=== PATIENT | male | born 1990 | race Caucasian/White ===

== ENCOUNTER 2019-04-26 03:17 | Emergency (ER) | payer SELFPAY ==
[2019-04-26 03:37] VITALS: BP 115/64; PULSE 65; TEMP 98.4; BMI 22.7
--- NOTE | 2019-04-26 03:42 | PDOC ---
History of Present Illness - General Chief Complaint: Pain Stated Complaint: SPLINTER LEFT FOOT Time Seen by Provider: 04/26/19 03:42 - History of Present Illness Initial Comments: 29 year old male with no PMH presneitn giwht Left foot pain for the past 1 hour after stepping on a broken piece of wood niraj. He believes that he has a splinter still stuck in his left foot because he feels a sensation when he walks. He puled out a large piece of it but does not beleive that the entire piece was removed. Denies any drainage from the area, fever,s chills, nausea, vomiting, diarrhea, or other symptoms. His tetanus is not up to date. 04/26/19 03:42 Past History - Past Medical History Allergies/Adverse Reactions: Allergies Allergy/AdvReac Type Severity Reaction Status Date / Time No Known Allergies Allergy Verified 04/26/19 03:36 Home Medications: Ambulatory Orders levoFLOXacin [Levaquin] 750 mg PO DAILY #7 tab 04/26/19 COPD: No - Surgical History Abdominal Surgery: Yes (HERNIA) - Psycho Social/Smoking Cessation Hx Smoking History: Never smoked Hx Alcohol Use: Yes Drug/Substance Use Hx: Yes (MARIJUANA) Substance Use Type: None Review of Systems - Review of Systems Constitutional: No: Chills, Diaphoresis, Fever, Loss of Appetite HEENTM: No: Eye Pain, Blurred Vision, Tearing Respiratory: No: Cough, Orthopnea, Shortness of Breath Cardiac (ROS): No: Chest Pain, Edema, Irregular Heart Rate ABD/GI: No: Diarrhea, Nausea, Vomiting : No: Burning, Dysuria, Discharge Musculoskeletal: No: Back Pain, Gout, Joint Pain Integumentary: No: Bruising, Lesions, Lumps Neurological: No: Headache, Numbness, Paresthesia, Tingling Hematologic/Lymphatic: No: Anemia, Blood Clots, Easy Bleeding *Physical Exam - Vital Signs Last Vital Signs Temp Pulse Resp BP Pulse Ox 98.4 F 65 18 115/64 97 04/26/19 03:33 04/26/19 03:33 04/26/19 03:33 04/26/19 03:33 04/26/19 03:33 - Physical Exam General Appearance: Yes: Nourished, Appropriately Dressed. No: Apparent Distress HEENT: positive: EOMI, BRYSON, Normal ENT Inspection, Normal Voice Neck: positive: Trachea midline, Normal Thyroid, Supple. negative: Tender, Rigid Respiratory/Chest: positive: Lungs Clear, Normal Breath Sounds. negative: Chest Tender, Respiratory Distress, Accessory Muscle Use Cardiovascular: positive: Regular Rhythm, Regular Rate Gastrointestinal/Abdominal: positive: Normal Bowel Sounds, Flat, Soft. negative : Tender Lymphatic: negative: Adenopathy, Tenderness Musculoskeletal: positive: Normal Inspection. negative: Decreased Range of Motion Extremity: positive: Normal Capillary Refill, Normal Range of Motion. negative : Normal Inspection (mascerated area of the left distal medial aspect of his left foot without obvious foreign body.), Tender Integumentary: positive: Normal Color, Dry, Warm Neurologic: positive: Fully Oriented, Alert, Normal Mood/Affect, Normal Response , Motor Strength 5/5 Medical Decision Making - Medical Decision Making 29 year old male with no PMH presenting with suspected retained splinter in his left foot after a piece of wood niraj came loose. XR negative, patient given tdap. However, we cannot rule out with 100% sensitivity a retained foreign body so will send home with Levaquin 750 daily for ppx of retained foreign body ( pseudomonal coverage). Will DC with return precautions and follow up instructions. 04/26/19 04:48 Discharge - Discharge Information Problems reviewed: Yes Clinical Impression/Diagnosis: Splinter of foot without infection Qualifiers: Encounter type: initial encounter Laterality: left Qualified Code(s): S90.852A - Superficial foreign body, left foot, initial encounter Condition: Stable Disposition: HOME - Admission No - Additional Discharge Information Prescriptions: levoFLOXacin [Levaquin] 750 mg PO DAILY #7 tab - Follow up/Referral Referrals: [facility] [Provider Group] - Patient Discharge Instructions Patient Printed Discharge Instructions: DI for Splinter Removal Additional Instructions: Please wear protective foot wear with clean socks. Please take the antibiotics as directed for 7 days. Please watch the area for worsening pain, redness, or fluid drainage. Please return to the ED if you notice any of the symptoms, fevers, chills, or other concerning symptoms. Please follow up with your PCP at your regular appointment or use our clinic on this sheet. - Post Discharge Activity
[2019-04-26] MEDS ORDERED: DIPHTH,PERTUSS(ACELL),TET 0.5 ML DISP.SYRIN IM ONE ×2 (04:08→04:43)
--- NOTE | 2019-04-26 05:02 | PDOC ---
Attending Attestation - Resident Resident Name: Lata Zavala - ED Attending Attestation I have performed the following: I have examined & evaluated the patient, The case was reviewed & discussed with the resident, I agree w/resident's findings & plan, Exceptions are as noted - HPI HPI: 04/26/19 04:58 29 M with no PMH presents to ED with splinter to L foot. Pt states he stepped on a piece of wood that was protruding from the floor. He pulled out the piece of wood but is worried there may be a fragment left inside his foot. He states that he feels some pain with walking. Pt attempted to dig out the retained fragment with a needle but could not find anything. Pt denies any bleeding, swelling, or redness to the area. - Physicial Exam PE: 04/26/19 04:59 "GENERAL: Awake, alert, and fully oriented, in no acute distress. HEAD: No signs of trauma EYES: PERRLA, EOMI, sclera anicteric, conjunctiva clear ENT: Auricles normal inspection, hearing grossly normal, nares patent, oropharynx clear without exudates. Moist mucosa NECK: Nontender, no stepoffs, Normal ROM, supple, no lymphadenopathy, JVD, or masses LUNGS: Breath sounds equal, clear to auscultation bilaterally. No wheezes, and no crackles HEART: Regular rate and rhythm, normal S1 and S2, no murmurs, rubs or gallops ABDOMEN: Soft, nontender, normoactive bowel sounds. No guarding, no rebound. No masses EXTREMITIES: Normal range of motion, no edema. No clubbing or cyanosis. No cords, erythema, or tenderness NEUROLOGICAL: Cranial nerves II through XII intact. 5/5 strength and sensation in all extremities, Normal speech, normal gait, normal cerebellar function SKIN: + L foot plantar surface with puncture wound, no visible splinter or foreign body - Medical Decision Making 04/26/19 05:00 29 M with puncture wound to L plantar foot. - XR shows no obvious foreign body - Tdap - Levaquin for pseudomonas ppx Pt is well appearing, with normal vitals. Clinically stable for DC at this time. I discussed the physical exam findings, ancillary test results and final diagnoses with the patient. I answered all of the patient's questions. The patient was satisfied with the care received and felt comfortable with the discharge plan and treatment plan. The patient agrees to follow up with the primary care physician within 24-72 hours.
== END 2019-04-26 06:07 | disposition home or self-care (01) ==
LOC: JER 03:17
PROC: 3E0234Z Introduction of Serum, Toxoid and Vaccine into Muscle, Percutaneous Approach (ICD-10-PCS; principal; 2019-04-26)
DX: S90.852A Superficial foreign body, left foot, initial encounter (principal); W45.8XXA Other foreign body or object entering through skin, initial encounter; Y93.89 Activity, other specified; Y92.89 Other specified places as the place of occurrence of the external cause; Y99.8 Other external cause status
CPT/HCPCS: 73630-TC-LT; 90715; 99281-25